=== PATIENT | male | born 1955 | race African-American/Black ===

== ENCOUNTER 2023-12-23 19:41 | Emergency (ER) | payer MEDICARE, MEDICAID ==
[~2023-12-23] VITALS: Ht 170.2 cm; Wt 77.0 kg
[2023-12-23 19:53] VITALS: O2SAT 99
[2023-12-24] MEDS: IBUPROFEN 600MG TABLET PO ONE (06:00)
[2023-12-24] MEDS ORDERED: NAPR-681 MT (06:59)
[2023-12-24 08:05] VITALS: BP 138/76; PULSE 68; RESP 20; TEMP 98
== END 2023-12-24 08:06 | disposition home or self-care (01) ==
LOC: ER 19:41
DX: M17.0 Bilateral primary osteoarthritis of knee (principal); M25.561 Pain in right knee; M25.562 Pain in left knee
CPT/HCPCS: 73562; 99283

== ENCOUNTER 2023-12-24 12:23 | Emergency (ER) | payer MEDICARE, MEDICAID ==
[~2023-12-24] VITALS: Ht 177.8 cm; Wt 91.0 kg
[~2023-12-24 12:23] MED LIST: NAPR-681 MT
[2023-12-24 12:45] VITALS: BP 142/86; PULSE 81; RESP 16; TEMP 97.9; O2SAT 99
== END 2023-12-24 15:11 | disposition left against medical advice (07) ==
LOC: ER 13:00
DX: N32.9 Bladder disorder, unspecified (principal); Z53.21 Procedure and treatment not carried out due to patient leaving prior to being seen by health care provider
CPT/HCPCS: 99281